=== PATIENT | male | born 2000 | race Caucasian/White ===

== ENCOUNTER 2022-02-19 08:09 | Emergency (ER) | payer OTHER ==
[2022-02-19] MEDS ORDERED: Ketorolac Tromethamine 30 MG/ML VIAL ONE (08:43)
[2022-02-19] MEDS ORDERED: Metoclopramide 10 MG/10 ML UDCUP ONE (08:43)
[2022-02-19] MEDS ORDERED: Acetaminophen 500 MG TAB ONE (08:43)
[2022-02-19] MEDS ORDERED: diphenhydrAMINE 12.5 MG/5 ML UDCUP ONE (08:43)
[2022-02-19] MEDS ORDERED: Metoclopramide HCl 10 MG/2 ML VIAL ONE (08:44)
[2022-02-19] MEDS ORDERED: diphenhydrAMINE 50 MG/ML VIAL ONE (08:44)
== END 2022-02-19 10:40 | disposition home or self-care (01) ==
LOC: ERS 08:09
DX: R51.9 Headache, unspecified (principal); E11.9 Type 2 diabetes mellitus without complications; Z79.899 Other long term (current) drug therapy
CPT/HCPCS: 94760; 96365; 96375; J1200; J1885; J2765; Q0163

== ENCOUNTER 2025-09-12 07:57 | Emergency (ER) | payer OTHER ==
[2025-09-12] MEDS ORDERED: Ondansetron PF 4 MG/2 ML Vial ONE (08:51)
[2025-09-12 09:14] LABS: #Basophils 0.04 10x3/uL (0.0-0.2); #Eosinophils 0.11 10x3/uL (0.0-0.7); #Monocytes 0.46 10x3/uL (0.11-0.59); #Neutrophils 4.43 10x3/uL (1.40-6.50); %Basophils 0.6 % (0.0-1.0); %Eosinophils 1.7 % (0.0-10.0); %Lymphocytes 22.8 % (21.0-51.0); %Monocytes 7.0 % (0.0-10.0); %Neutrophils 67.3 % (42.0-75.0); Hematocrit 44.2 % (42.0-52.0); Hemoglobin 15.6 g/dL (14.0-18.0); Mean Corpuscular Hemoglobin 30.6 pg (27.0-31.0); Mean Corpuscular Volume 86.7 fL (78.0-98.0); Platelet Count 246 10x3/uL (130-400); Red Blood Cell (RBC) Count 5.10 mill/uL (4.70-6.10); White Blood Cell (WBC) Count 6.58 10x3/uL (4.8-10.8)
[2025-09-12 09:22] LABS: Glucose, Urine (Dipstick) Negative (Negative); Leukocyte Negative (Negative); Protein, Urine (Dipstick) Negative (Neg-Trace); Specific Gravity, Urine Greater/Equal 1.030 (1.005-1.030)
[2025-09-12 09:32] LABS: ALT (SGPT) 21 U/L (Less than 45); AST (SGOT) 20 U/L (11-34); Albumin 4.7 g/dL (3.1-4.5); Alkaline Phosphatase 87 U/L (40-110); Anion Gap 16 mmol/L (10-20); BUN (Urea Nitrogen) 12 mg/dL (8.9-20.6); Bilirubin, Total 0.4 mg/dL (0.3-1.2); Calc. Creatinine Clearance 0 mL/min (70-130); Calcium 9.8 mg/dL (7.8-10.44); Carbon Dioxide 25 mmol/L (22-29); Chloride 105 mmol/L (98-107); Globulin 3.1 g/dL (2.4-3.5); Glucose 122 mg/dL (70-105); Lipase 23 U/L (8-78); Magnesium 2.1 mg/dL (1.6-2.6); Potassium 4.7 mmol/L (3.5-5.1); Sodium 141 mmol/L (136-145)
[2025-09-12 09:33] LABS: CAUTI Indications for Culture Pelvic or flank pain; RBC/HPF None Seen HPF (0-3); WBC/HPF None Seen HPF (0-3)
[2025-09-12 09:34] LABS: Urine Culture Reflex No No
== END 2025-09-12 09:45 | disposition home or self-care (01) ==
LOC: ERS 07:57
DX: B34.9 Viral infection, unspecified (principal); E11.9 Type 2 diabetes mellitus without complications; F17.220 Nicotine dependence, chewing tobacco, uncomplicated; Z79.84 Long term (current) use of oral hypoglycemic drugs
CPT/HCPCS: 80053; 81001; 83690; 83735; 85025; 87428; 96361; 96374; J2405